=== PATIENT | male | born 1980 | race Caucasian/White ===

== ENCOUNTER 2019-07-11 15:11 | Emergency (ER) | payer BC, OTHER ==
[~2019-07-11] VITALS: Ht 187 cm; Wt 116.0 kg
[~2019-07-11 15:11] MED LIST: OXYC1TAB19 PO; antibiotic
[2019-07-11] MEDS ORDERED: ASPIRIN 81 MG CHEW (CHILDREN'S ASA) PO ONE (16:00)
[2019-07-11] MEDS ORDERED: KETOROLAC 30 MG/ML VIAL IVP ONE (16:00)
--- NOTE | 2019-07-11 16:13 | ED General ---
General Chief Complaint: Chest Pain Stated Complaint: LEFT SHOULDER PAIN Nursing Triage Note: pt presents to ed with complaints of l shoulder pain that radiating up to the r side of his neck that woke him up from sleep from 0230 this am, pt reports intenses pain lasted aprox 30-45 mins. Pt reports he eventually went back to sleep. Pt states he continues to have some tightness in his chest that increases with inspirtation and has some mild aching pain in his l shoulder. Nursing Sepsis Screen: No Definite Risk Source of Information: Patient Exam Limitations: No Limitations History of Present Illness Date Seen by Provider: Jul 11, 2019 Time Seen by Provider: 16:11 Initial Comments To ER with left-sided chest and abdomen pain. This awakened him during the night at about 2:30 AM very severe, the pain is worsened by deep breathing, he has not had a cough no fevers no chills. No nausea no vomiting. He's had persistent ac hiness throughout the day today, currently radiates the pain at 4 out of 10 from his waist on the left side up to his shoulder on the left side. He does have some shortness of breath Timing/Duration: 12-24 Hours Severity: Moderate Associated Systoms: Chest Pain; No Cough, No Fever/Chills, No Nausea/Vomiting Allergies and Home Medications Allergies Coded Allergies: No Known Drug Allergies (Unverified , 03/29/10) Home Medications Methocarbamol 750 Mg Tablet, 750 MG PO Q4H Prescribed by: ROOSEVELT ALAMO on 07/11/19 1725 Oxycodone Hcl/Acetaminophen 1 Each Tablet, 1 EACH PO Q 6 HOURS Prescribed by: BELLE DURAN on 03/29/10 0728 Patient Home Medication List Home Medication List Reviewed: Yes Review of Systems Review of Systems Constitutional: see HPI EENTM: see HPI Respiratory: no symptoms reported Cardiovascular: no symptoms reported Genitourinary: no symptoms reported Musculoskeletal: no symptoms reported Skin: no symptoms reported Psychiatric/Neurological: No Symptoms Reported Hematologic/Lymphatic: No Symptoms Reported Immunological/Allergic: no symptoms reported Past Jqcvpqb-Zjeimb-Ixkiak Hx Patient Social History Alcohol Use: Occasionally Uses Recreational Drug Use: No Smoking Status: Never a Smoker Recent Foreign Travel: No Contact w/Someone Who Travel: No Recent Infectious Disease Expo: No Recent Hopitalizations: No Physical Abuse: No Sexual Abuse: No Mistreated: No Fear: No Past Medical History Surgeries: Yes (r hand, lithrotripsy) Eye Surgery, Orthopedic Respiratory: No Cardiac: No Neurological: No Genitourinary: Yes Kidney Stones Gastrointestinal: No Musculoskeletal: No Endocrine: No HEENT: No Cancer: No Psychosocial: No Blood Disorders: No Physical Exam Vital Signs Vital Signs - First Documented 07/11/19 07/11/19 15:47 16:12 Temp 37.0 Pulse 69 Resp 16 B/P (MAP) 134/84 (101) Pulse Ox 98 O2 Delivery Room Air Capillary Refill : Less Than 3 Seconds Height, Weight, BMI Height: '" Weight: lbs. oz. kg; 33.00 BMI Method:Estimated General Appearance: No Apparent Distress, WD/WN Eyes: Bilateral Eye Normal Inspection, Bilateral Eye PERRL, Bilateral Eye EOMI HEENT: PERRL/EOMI, TMs Normal Neck: Full Range of Motion, Normal Inspection Respiratory: No Accessory Muscle Use, No Respiratory Distress Cardiovascular: Regular Rate, Rhythm, Normal Peripheral Pulses Gastrointestinal: Normal Bowel Sounds, Soft, Tenderness (left upper abdomen) Neurologic/Psychiatric: Alert, Oriented x3 Progress/Results/Core Measures Suspected Sepsis Recent Fever Within 48 Hours: No Infection Criteria Present: None New/Unexplained Altered Menta: No Sepsis Screen: No Definite Risk SIRS Temperature: Pulse: 69 Respiratory Rate: 16 Laboratory Tests 07/11/19 16:04: White Blood Count 10.4 Blood Pressure 134 /84 Mean: 101 Laboratory Tests 07/11/19 16:04: Creatinine 0.81, INR Comment 0.9, Platelet Count 271, Total Bilirubin 0.2 Results/Orders Lab Results Laboratory Tests Test 07/11/19 16:04 Range/Units White Blood Count 10.4 4.3-11.0 10^3/uL Red Blood Count 4.47 4.35-5.85 10^6/uL Hemoglobin 13.6 13.3-17.7 G/DL Hematocrit 40 40-54 % Mean Corpuscular Volume 89 80-99 FL Mean Corpuscular Hemoglobin 30 25-34 PG Mean Corpuscular Hemoglobin Concent 34 32-36 G/DL Red Cell Distribution Width 12.6 10.0-14.5 % Platelet Count 271 130-400 10^3/uL Mean Platelet Volume 9.7 7.4-10.4 FL Neutrophils (%) (Auto) 65 42-75 % Lymphocytes (%) (Auto) 19 12-44 % Monocytes (%) (Auto) 10 0-12 % Eosinophils (%) (Auto) 5 0-10 % Basophils (%) (Auto) 1 0-10 % Neutrophils # (Auto) 6.8 1.8-7.8 X 10^3 Lymphocytes # (Auto) 2.0 1.0-4.0 X 10^3 Monocytes # (Auto) 1.0 0.0-1.0 X 10^3 Eosinophils # (Auto) 0.5 H 0.0-0.3 10^3/uL Basophils # (Auto) 0.1 0.0-0.1 10^3/uL Prothrombin Time 12.5 12.2-14.7 SEC INR Comment 0.9 0.8-1.4 Activated Partial Thromboplast Time 24 24-35 SEC D-Dimer 0.29 0.00-0.49 UG/ML Sodium Level 138 135-145 MMOL/L Potassium Level 4.1 3.6-5.0 MMOL/L Chloride Level 106 98-107 MMOL/L Carbon Dioxide Level 21 21-32 MMOL/L Anion Gap 11 5-14 MMOL/L Blood Urea Nitrogen 13 7-18 MG/DL Creatinine 0.81 0.60-1.30 MG/DL Estimat Glomerular Filtration Rate > 60 BUN/Creatinine Ratio 16 Glucose Level 93 70-105 MG/DL Calcium Level 9.0 8.5-10.1 MG/DL Corrected Calcium 8.7 8.5-10.1 MG/DL Magnesium Level 1.9 1.6-2.4 MG/DL Total Bilirubin 0.2 0.1-1.0 MG/DL Aspartate Amino Transf (AST/SGOT) 34 5-34 U/L Alanine Aminotransferase (ALT/SGPT) 47 0-55 U/L Alkaline Phosphatase 87 40-136 U/L Myoglobin 24.0 10.0-92.0 NG/ML Troponin I < 0.028 <0.028 NG/ML B-Type Natriuretic Peptide 12.4 <100.0 PG/ML Total Protein 7.5 6.4-8.2 GM/DL Albumin 4.4 3.2-4.5 GM/DL My Orders Orders - ROOSEVELT ALAMO MEDICAL INFORMATION SPECIALIST Cbc With Automated Diff (07/11/19 15:59) Magnesium (07/11/19 15:59) Chest 1 View, Ap/Pa Only (07/11/19 15:59) Ekg Tracing (07/11/19 15:59) Comprehensive Metabolic Panel (07/11/19 15:59) Myoglobin Serum (07/11/19 15:59) Protime With Inr (07/11/19 15:59) Partial Thromboplastin Time (07/11/19 15:59) O2 (07/11/19 15:59) Monitor-Rhythm Ecg Trace Only (07/11/19 15:59) Ed Iv/Invasive Line Start (07/11/19 15:59) BNP (07/11/19 15:59) Troponin I (07/11/19 15:59) Aspirin Chewable Tablet (Baby Aspirin Ch (07/11/19 16:00) Ketorolac Injection (Toradol Injection) (07/11/19 16:00) Ct Angio Chst/Abd/Pelv W (07/11/19 16:10) Fibrin Degradation Products (07/11/19 15:59) Iohexol Injection (Omnipaque 350 Mg/Ml 1 (07/11/19 16:45) Received Contrast (Hold Metformin- Contr (07/11/19 16:45) Ns (Ivpb) (Sodium Chloride 0.9% Ivpb Bag (07/11/19 16:45) Medications Given in ED Current Medications Medications Dose Ordered Sig/Jayla Route Start Time Stop Time Status Last Admin Dose Admin Aspirin 324 mg ONCE ONCE PO 07/11/19 16:00 07/11/19 16:01 DC 07/11/19 16:13 324 MG Ketorolac Tromethamine 15 mg ONCE ONCE IVP 07/11/19 16:00 07/11/19 16:01 DC 07/11/19 16:13 15 MG Vital Signs/I&O 07/11/19 07/11/19 07/11/19 15:47 16:12 17:41 Temp 37.0 37.0 Pulse 69 80 Resp 16 16 B/P (MAP) 134/84 (101) 109/62 (101) Pulse Ox 98 98 O2 Delivery Room Air Room Air Capillary Refill : Less Than 3 Seconds Blood Pressure Mean: 101 Departure Communication (Admissions) chest pain resolved at discharge. Impression Primary Impression: Left-sided chest wall pain Disposition: HOME, SELF-CARE Condition: Improved Departure-Patient Inst. Decision time for Depature: 17:24 Referrals: EMILY BATISTA MD (PCP/Family) Primary Care Physician Patient Instructions: Chest Pain Add. Discharge Instructions: 1. Follow-up with your doctor this week for recheck. Return to ER for any worse delfino or recurrent symptoms. Muscle relaxer as directed. Muscle relaxer as directed. All discharge instructions reviewed with patient and/or family. Voiced understanding. Scripts Methocarbamol (Robaxin-750) 750 Mg Tablet 750 MG PO Q4H, #10 TAB Prov: ROOSEVELT ALAMO APRN 07/11/19 ROOSEVELT ALAMO APRN Jul 11, 2019 16:13
[2019-07-11 16:16] LABS: BASOPHILS # (AUTO) 0.1 10^3/uL (0.0-0.1); BASOPHILS % (AUTO) 1 % (0-10); EOSINOPHILS # (AUTO) 0.5 10^3/uL (0.0-0.3); EOSINOPHILS % (AUTO) 5 % (0-10); HEMATOCRIT 40 % (40-54); HEMOGLOBIN 13.6 G/DL (13.3-17.7); LYMPHOCYTES % (AUTO) 19 % (12-44); MEAN CORPUSCULAR HEMOGLOBIN 30 PG (25-34); MEAN CORPUSCULAR HGB CONC 34 G/DL (32-36); MEAN CORPUSCULAR VOLUME 89 FL (80-99); MEAN PLATELET VOLUME 9.7 FL (7.4-10.4); MONOCYTES % (AUTO) 10 % (0-12); NEUTROPHILS # (AUTO) 6.8 X 10^3 (1.8-7.8); NEUTROPHILS % (AUTO) 65 % (42-75); PLATELET COUNT 271 10^3/uL (130-400); RED CELL DISTRIBUTION WIDTH 12.6 % (10.0-14.5); WHITE BLOOD COUNT 10.4 10^3/uL (4.3-11.0)
[2019-07-11] MEDS ORDERED: HOLD METFORMIN - RECEIVED CONTRAST 20 ML VIAL IV SCH (16:45)
[2019-07-11] MEDS ORDERED: NS 100 ML (IVPB) BAG IV ONE (16:45)
[2019-07-11] MEDS ORDERED: IOHEXOL 350 MG/ML 100 ML (OMNIPAQUE 350) VIAL IV ONE (16:45)
[2019-07-11 16:46] LABS: INR 0.9 (0.8-1.4); PROTHROMBIN TIME PATIENT 12.5 SEC (12.2-14.7)
[2019-07-11 16:50] LABS: ALANINE AMINOTRANSFERASE 47 U/L (0-55); ALBUMIN 4.4 GM/DL (3.2-4.5); ALKALINE PHOSPHATASE 87 U/L (40-136); BILIRUBIN,TOTAL 0.2 MG/DL (0.1-1.0); BUN/CREATININE RATIO 16; CARBON DIOXIDE 21 MMOL/L (21-32); CHLORIDE 106 MMOL/L (98-107); CREATININE SERUM 0.81 MG/DL (0.60-1.30); GFR ESTIMATED > 60; GLUCOSE 93 MG/DL (70-105); MAGNESIUM 1.9 MG/DL (1.6-2.4); POTASSIUM 4.1 MMOL/L (3.6-5.0); SODIUM 138 MMOL/L (135-145); TOTAL PROTEIN 7.5 GM/DL (6.4-8.2)
[2019-07-11 17:05] LABS: FIBRIN DEGRADATION PRODUCTS 0.29 UG/ML (0.00-0.49)
--- NOTE | 2019-07-11 17:11 | Diagnostic Imaging Report ---
EXAMINATION: PA chest at 05:07 p.m. INDICATION: Left-sided chest pain. FINDINGS: There are no prior chest examinations available for comparison. The CTA chest exam performed in conjunction with this study failed to show any sign of an acute cardiopulmonary abnormality. On this exam, the heart size is within normal limits. The perihilar markings are somewhat prominent, but there is no evidence for failure, pneumonia, or for a pleural effusion. The mediastinum is not widened. The osseous structures are intact. IMPRESSION: There is no evidence for an acute cardiopulmonary abnormality. Dictated by: Dictated on workstation # [id number]
--- NOTE | 2019-07-11 17:16 | Diagnostic Imaging Report ---
PROCEDURE: CT angiography of the chest with contrast and CT abdomen and pelvis with contrast. TECHNIQUE: Multiple contiguous axial images were obtained through the chest, abdomen and pelvis after administration of intravenous contrast. 3D MIP reconstructed CT angiography acquisitions of the aorta were then performed. Auto Exposure Controls were utilized during the CT exam to meet ALARA standards for radiation dose reduction. INDICATION: Left shoulder pain, right-sided neck pain. There are no prior CTA chest examinations available for comparison. FINDINGS: The CT abdomen/pelvis exam of 03/29/2010 noted partial obstruction of left collecting system due to aforementioned calculus. The images through the thorax are less than optimal as the pulmonary arteries are not fully opacified. There is no definite defect within the pulmonary arteries to indicate a pulmonary embolus. The aorta is not abnormally dilated and there is no sign of dissection. The heart is prominent but there are no coronary artery calcifications evident. There is no mediastinal or hilar adenopathy. There is a small 4.4 mm area of low density in the right lobe of the thyroid. This is most likely a benign process but ultrasound would be recommend to better characterize this finding. The lungs are generally clear. There is mild dependent atelectasis in both lung bases. There is no sign of failure, pneumonia or a pleural effusion. The sections through the abdomen and pelvis show that the abdominal aorta is normal in caliber. There is no evidence for dissection or aneurysm. There is no hemodynamically significant stenosis of the major branches of the aorta. There are one or two small nonobstructive calculi within both kidneys. There is no evidence of obstruction of either collecting system, however. The liver is of lower density than usually seen. This does suggest fatty metamorphosis. The spleen, pancreas, adrenals, gallbladder and inferior vena cava are unremarkable for an acute abnormality. The stomach is not well distended and difficult to assess. There does appear to be a small 3.3 cm hiatal hernia. This was also present on the prior exam. The appendix is dilated by air. This appearance is similar to the prior exam. There is no evidence of acute appendicitis. There is no pelvic mass or free fluid collection noted. There are a few diverticula in the sigmoid and descending colon but there is no sign of acute diverticulitis. The urinary bladder and prostate gland are grossly unremarkable. The bone windows show no sign of a fracture or of a destructive lesion. IMPRESSION: 1. There is no evidence for an acute cardiopulmonary abnormality. In particular, there is no sign of an aortic dissection. The pulmonary arteries were not well evaluated but there is no obvious defect to suggest a pulmonary embolus. 2. There is no acute abnormality of the abdomen and pelvis noted. 3. There are a few small nonobstructive calculi within both kidneys. 4. There is diverticulosis of the sigmoid and descending colon without evidence for acute diverticulitis. Dictated by: Dictated on workstation # [id number]
[2019-07-11] MEDS ORDERED: METH-313 PO (17:25)
[2019-07-11 17:41] VITALS: BP 109/62
--- OUTSIDE RECORDS SUMMARY | 2019-07-13 15:55 | XMS REPORT ---
Author Author Fam Sommer [facility] Address [address] [facility] [address], [place] [id number] Care Team Providers Care Machining And Assembly Supervisor Name Role Phone Angelic Sommer PCP Allergies and Adverse Reactions Not available. Plan of Treatment Planned Activity Comments Planned Date Planned Time Plan/Goal BAT 06/29/2019 12:00 AM Medications Not available. Problem List Not available. Vital Signs Not available. Social History Not available. History of Procedures Not available. Results Summary Not available. History Of Immunizations Not available. History of Past Illness Name Date of Onset Comments Drug screening, pre-employment Jun 29 2019 10:34AM Payers Insurance Name Company Name Plan Name Plan Number Policy Number Freddie cy Group Number Start Date [facility] Med Occupational Medicine [id number] N/A History of Encounters Visit Date Visit Type Provider 06/29/2019 Laboratory Paz Yanes LPN
--- OUTSIDE RECORDS SUMMARY | 2019-07-13 15:55 | XMS REPORT | Continuity of Care Document ---
Author Organization Unknown Address Unknown Phone Unavailable Allergies There is no data. Medications There is no data. Problems There is no data. Procedures There is no data. Results There is no data. Encounters ACCT No. Visit Date/Time Discharge Status Pt. Type Provider Facility Loc./Unit Complaint [id number] 06/29/2019 11:06:40 06/29/2019 23:59: 59 CLS Outpatient Angelic Sommer
--- OUTSIDE RECORDS SUMMARY | 2019-07-13 15:55 | XMS REPORT ---
Author Author Fam Sommer [facility] Address [address] [facility] [address] [place], [place] [id number] Care Team Providers Care Financial Service Representative Name Role Phone Angelic Sommer PCP Allergies [...] Number Freddie cy Group Number Start Date [facility] Med Occupational Medicine [id number] N/A History of Encounters Visit Date Visit Type Provider 06/29/2019 Laboratory Paz Yanes LPN
--- OUTSIDE RECORDS SUMMARY | 2019-07-13 15:55 | XMS REPORT ---
Author Author [employer]. Organization [employer] Address [address] [address] Care Team Providers Care Mass Communications Professor Name Role Phone HANNAH SZYMANSKI Unavailable EMILY BATISTA MD Unavailable Unavailable Angelic Sommer PCP Angelic Sommer PCP MD Triny BATISTA PCP Allergies The data below is from unstructured sources No Known AllergiesNot available.Not available.Not available.No known allergies.No known allergies. Medications Medication Ingredient Drug Dose Dates Status Sig Sig Care Class(es) (Normalized) (Original) Provid er methocarbam Methocarbam Muscle 07-11-19 Active no Methocarba mo no ol 750 mg ol Relaxant 20 information l Active 750 name oral tablet ORAL Every (no (1 source.) 4HRS 10 phone) July 11, 2019 5:25pm no Oxycodone no 03-29-20 Active no Oxycodone no information Hcl/Acetami information 10 information Hcl/Ac etamin name (1 source.) nophen ophen Active (no 1 ORAL Q 6 phone) Hours 14 March 29, 2010 7:28am Problems Active Problems Problem Normalized Date of Normalized Normalized Provider Fac ility Classification Problem(s) Problem Problem Problem Sta tus Onset/Resoluti Duration on Immunizations Encounter for Episodic Active HANNAH SZYMANSKI Com munity and screening screening for [address] [facility] for infectious respiratory of [place] disease (1 tuberculosis [place] ([address]) source.) Translations: [ - Visit for TB skin test Z11.1] Administrative Health 06-29-2019 - Episodic Active Angelic Sommer [facility] /social examination of Physicians admission (2 defined Group ([address]) sources.) subpopulations ( ) Past or Other Problems Problem Normalized Date of Normalized Normalized Provider Fac ility Classification Problem(s) Problem Problem Problem Sta tus Onset/Resoluti Duration on Other Pain in left Episodic Completed EMILY BATISTA [facility] Via connective lower leg [facility] tissue [facility] - (1 source.) [place] ([address]) Other Synovial cyst Episodic Completed EMILY BATISTA [facility] Via connective of popliteal [facility] - (1 source.) left knee [place] ([id number]) Procedures Procedure Normalized Procedure Procedure Result Performer Facility Date 07-11-2019 CT angiography no information no name (no phone) [facility] ([id number]) 07-11-2019 Electrocardiographic no information no name (no laura ne) [facility] ([id number]) 07-11-2019 Plain chest X-ray no information no name (no phone) [facility] ([id number]) 07-27-2017 Skin test tuberculosis no information no name (no p randall) [facility] intradermal [facility] ([id number]) 07-27-2017 TB INTRADERMAL no information no name (no phone) [facility] ([id number]) Immunizations The data below is from unstructured sources No Known ImmunizationsNot available.Not available.Not available.No Immunization Information AvailableNo Immunization Information Available Results Test Name Value Interpretation Reference Range Date Time Fa cility (Normalized) (Normalized) (Medline Reference) No panel information on null NEGATED no information (no code) [facility] no [facility] ([id number]) NEGATED no information (no code) [facility] no [facility] ([address]805) NEGATED no information (no code) [facility] no [facility] ([id number]) Vital Signs The data below is from unstructured sources Vital Reading Result Col lection Date/Time Interventions No Information Plan of Treatment Normalized Care Care Detail Care Activity Date Care Provider F acility Activity Assay of alcohol BAT 06-29-2019 - [facility] breath 06-29-2019 - [facility] 06-29-2019 ([id number]) ( ) Patient Education Chest Pain no information MD EMILY BATISTA [facility] [address] [address] [facility] ([id number]) Patient referral no information no information MD EMILY BATISTA [facility] [address] [facility] ([id number]) Goals Patient Goal Desired Goal no information no information Social History Normalized Code Original Code Date Value no information no information no information Unknown if ever smoked Tobacco smoking status Tobacco smoking status no information Never smoked tobacco NHIS NHIS (finding) no information no information 07-11-2019 Occasionally Us es no information no information 07-11-2019 No no information no information 07-11-2019 Never a Smoker Sex Assigned At Sex Assigned At no information M soila Functional Status The data below is from unstructured sourcesNo Functional Status information available Mental Status The data below is from unstructured sourcesNo Mental Status Information Available Encounters Encounter Normalized Encounter Encounter Diagnosis Care Provi citlali Organization Date Type 07-27-2017 (imm/inj) Encounter for HANNAH SZYMANSKI (no phone) [facility] Immunization/injection screening for (no phone) respiratory tuberculosis 07-11-2019 Emergency department no information (no phone) [facility] patient [facility] (no phone) 07-11-2019 06-29-2019 Laboratory no information Paz Yanes Other I ndependence [facility] (no - phone) 06-29-2019 - 06-29-2019 NEGATED Patient encounter no information no name (no phone) no organization name 07-27-2017 (no phone) 03-24-2016 Patient encounter no information no name (no phone) no organization name procedure (no phone) Medical Equipment The data below is from unstructured sourcesNo Medical Equipment Information available Payers Normalized Payer Value [employer] [facility] [employer] no information [id number]) Unknown [id number] ([id number]) Evaluation note Note Type Note Facility Evaluation No Assessments Information Available [facility] note [facility] ([id number]) Advance Directives Advance Directive Response Recorded Date/Time Advance Directives No [facility] 3:47pm Organ Donor Yes July 102019 3:47pm Resuscitation Status Full Code July 11, 2019 3:47pm Chief Complaint and Reason for Visit Chief Complaint Chest Pain Reason for Visit [id number] Additional Source Comments This clinical document has been generated using TRAN.SL software that has been certified by the Office of the National Coordinator for Health Information Technology (ONC 15.99.04.3023.Diam.[id number]) and the National Committee for Gas Pumping Station Operator (NCQA, as an eMeasure certified technology). FOR RECORDS PERTAINING TO PATIENTS WHO ARE OR HAVE BEEN ENROLLED IN A CHEMICAL D EPENDENCY/SUBSTANCE ABUSE PROGRAM, SOME INFORMATION MAY BE OMITTED. This clinica l summary was aggregated from multiple sources. Caution should be exercised in using it in the provision of clinical care. This summary normalizes information from multiple sources, and as a consequence, information in this document may ma terially change the coding, format and clinical context of patient data. In soraya tion, data may be omitted in some cases. CLINICAL DECISIONS SHOULD BE BASED ON T HE PRIMARY CLINICAL RECORDS. [employer]. provides no warranty or guara ntee of the accuracy or completeness of information in this document.The followi ng information is based on time limited clinical information
--- OUTSIDE RECORDS SUMMARY | 2019-07-13 15:55 | XMS REPORT ---
Author Author Fam SZYMANSKI Organization [facility] Address [address] [place] [address] Care Team Providers Care Vessel Engineer Name Role Phone HANNAH SZYMANSKI Unavailable PROBLEMS Unknown Problems ALLERGIES No Known Allergies ENCOUNTERS Encounter Location Date Diagnosis [facility] [address] [facility] [id number] [place] [address] Jun, Visit for TB skin test Z11.1 IMMUNIZATIONS No Known Immunizations SOCIAL HISTORY Never Assessed REASON FOR VISIT TB skin test, CBrumbackRN PLAN OF CARE Activity Details Follow Up 48-72 hours Reason: VITAL SIGNS MEDICATIONS Unknown Medications RESULTS No Results PROCEDURES Procedure Date Ordered Result Body Site TB INTRADERMAL 2017-07-27 Negative TB INTRADERMAL TEST July 27, 2017 INSTRUCTIONS MEDICATIONS ADMINISTERED No Known Medications
== END 2019-07-11 17:41 | disposition home or self-care (01) ==
LOC: EDUNIT# 15:11 → ER 15:12
DX: R07.89 Other chest pain (principal)
CPT/HCPCS: 36415; 71045; 71275; 74174; 80053; 83735; 83874; 83880; 84484; 85025; 85379; 85610; 85730; 93005; 93041

== ENCOUNTER → 2020-02-13 | Outpatient (CLI) | payer BC ==
[~2020-02-13] MED LIST changes: +METH-313 PO
--- NOTE | 2020-02-13 12:24 | Diagnostic Imaging Report ---
INDICATION: Right elbow pain and injury. TIME OF EXAM: 11:21 a.m. EXAMINATION: Three views of right elbow were obtained. FINDINGS: Alignment is normal. No fracture or dislocation is identified. There is no effusion. IMPRESSION: No acute bony abnormality is detected. Dictated by: Dictated on workstation # [id number]
== END ==
LOC: RAD 10:36
PROVIDERS: ATTEND Family Medicine
DX: M25.521 Pain in right elbow (principal); X58.XXXA Exposure to other specified factors, initial encounter
CPT/HCPCS: 73080